=== PATIENT | female | born 1965 ===

== ENCOUNTER 2021-04-23 13:18 | Outpatient (CLI) | payer OTHER | END 2021-04-23 13:45 | disposition home or self-care (01) | LOC: AMB-ENDOS 13:18 → LAB 13:18 → AMB-ENDOS 13:45 | PROVIDERS: ATTEND Surgery | DX: Z03.818 Encounter for observation for suspected exposure to other biological agents ruled out (principal) ==

== ENCOUNTER 2021-04-26 06:00 | Day surgery (SDC) | payer OTHER ==
[2021-04-26] MEDS ORDERED: NEXIUM 24HR20 M1 PO (09:11)
[2021-04-26] MEDS ORDERED: CARAFATE1 GM PO (09:12)
== END 2021-04-26 10:55 | disposition home or self-care (01) ==
LOC: AMB-ENDOS 06:00
PROVIDERS: ATTEND Surgery
DX: K29.60 Other gastritis without bleeding (principal); K44.9 Diaphragmatic hernia without obstruction or gangrene; Z20.822 Contact with and (suspected) exposure to COVID-19